=== PATIENT | female | born 1985 | race Caucasian/White ===

== ENCOUNTER → 2018-03-29 | Outpatient (CLI) | payer OTHER | END | disposition home or self-care (01) | LOC: RAD 16:49 | PROVIDERS: ATTEND Nurse Practitioner Family | DX: M04.2 Cryopyrin-associated periodic syndromes (principal); M54.9 Dorsalgia, unspecified; R06.00 Dyspnea, unspecified; J45.909 Unspecified asthma, uncomplicated | CPT/HCPCS: 71046 ==